=== PATIENT | female | born 1950 | race Caucasian/White ===

== ENCOUNTER 2024-10-16 10:20 | Outpatient (AMB) | payer BC, SELFPAY ==
[2024-10-16 10:32] VITALS: BP 122/62; PULSE 80; O2SAT 98; BMI 28.4
--- NOTE | 2024-10-16 10:32 | A.OFFVIS_ITS ---
Vital Signs 10/16/24 10:32 Height 5 ft 8 in Weight 186 lb 8.177 oz BMI 28.4 BP 122/62 Blood Pressure Location Lt brachial Position Sitting Pulse 80 Pulse Source Pulse Oximeter Pulse Oximetry (%) 98 Oxygen Delivery Method Room Air Intake Visit Reasons: Vasculitis (ATC recs not revd) Intake Note: Patient present for follow up on vasculitis. Allergies No Known Allergies Allergy (Verified 10/16/24 10:35) HPI HPI Vasculitis (ATC recs not revd): Details: He had cataract surgery. He feels well. Denies GCA or PMR symptoms. He occasionally has right knee pain when he sleeping. After positional change it resolves. No new fractures. No new dental procedure plan. [facility] Medical History (Updated 10/16/24 @ 12:29 by Raghu Davies MD) COVID Tremor due to disorder of central nervous system Cataract Double vision TIA (transient ischemic attack) PMR (polymyalgia rheumatica) MRSA infection Giant cell arteritis Vasculitis Surgical History (Updated 10/16/24 @ 10:54 by Krupa Baker CMA) H/O hernia repair Social History (Updated 10/16/24 @ 10:57 by Krupa Baker CMA) Alcohol intake: current Comment: 2 beers a day Patient Tobacco Use Status: Former Tobacco user Tobacco use type: Cigarette Review of Systems Const All systems reviewed & are unremarkable except as noted in HPI and below Physical Exam Vital Signs: Last Vital Signs Pulse 80 10/16/24 10:32 BP 122/62 10/16/24 10:32 Pulse Ox 98 10/16/24 10:32 Oxygen Delivery Method Room Air 10/16/24 10:32 BMI result Body Mass Index 28.4 Const Other: General: Comfortable CVS: RRR Respiratory: clear to auscultation bilaterally. Good respiratory effort Skin: No lesions seen MSK: No tenderness of any joints. No synovitis. Good range of motion of upper extremity and lower extremity. Assessment & Plan Assessment & Plan (1) Giant cell arteritis: Comment: History of GCA with occlusive disease. In clinical remission. He reports recent visit with vascular surgery reported stable ultrasounds. Code(s): M31.6 - Other giant cell arteritis Category: Medical Plan: ESR and CRP have been ordered for monitoring Depressing medical records from [facility] Requesting last clinic note from vascular surgeon Dr. Coffey at [facility]. He will follow up with vascular surgery yearly. Requesting last CT chest 02/2024 Return to clinic in 6 months (2) Osteoporosis: Comment: On alendronate Code(s): M81.0 - Age-related osteoporosis without current pathological fracture Category: Medical Qualifiers: Osteoporosis type: age-related Presence of current pathological fracture: without current pathological fracture Qualified Code(s): M81.0 - Age- related osteoporosis without current pathological fracture Plan: Bone turnover markers, Creatinine, vitamin-D, albumin and calcium ordered Continue alendronate 70 mg once weekly Continue calcium and vitamin-D supplement Requesting medical records from [facility] Recurrent eye clinic in 6 months Orders: Orders C Reactive Protein Today M31.6 - Other giant cell arteritis Creatinine Today M31.6 - Other giant cell arteritis Vitamin D 25-OH Total Today M81.0 - Age-related osteoporosis without current pathological fracture Alkaline Phosphatase Bone Today M81.0 - Age-related osteoporosis without current pathological fracture Erythrocyte Sedimentation Rate Today M31.6 - Other giant cell arteritis Calcium Today M81.0 - Age-related osteoporosis without current pathological fracture Albumin Level Today M31.6 - Other giant cell arteritis, M81.0 - Age-related osteoporosis without current pathological fracture Collagen Type I C-Telopeptide Today M81.0 - Age-related osteoporosis without current pathological fracture Coding Level of Care Code Est Pt Level 4 (61496) Complex EM visit Add On G2211 Diagnoses Giant cell arteritis M31.6 Age-related osteoporosis without current pathological fracture M81.0 Osteoporosis type: age-related Presence of current pathological fracture: without current pathological fracture
== END 2024-10-16 11:35 | disposition home or self-care (01) ==
PROVIDERS: PCP Internal Medicine; Visit Provider Internal Medicine Rheumatology
DX: M31.6 Other giant cell arteritis (principal); M81.0 Age-related osteoporosis without current pathological fracture
CPT/HCPCS: 99214

== ENCOUNTER 2024-10-16 10:20 | Outpatient (REF) | payer BC, SELFPAY ==
[2024-10-16 14:00] LABS: Albumin Level 4.5 g/dL (3.5-5.0); Calcium 9.2 mg/dL (8.4-10.2); Estimated Glomerular Filt Rate > 60
[2024-10-16 14:10] LABS: Erythrocyte Sedimentation Rate 10 MM/HR (0-20)
[2024-10-16 14:19] LABS: Vitamin D 25-OH Total 35.5 ng/mL (>30)
[2024-10-18 13:33] LABS: Collagen Type I C-Telopeptide 93 pg/mL (see note)
[2024-10-19 13:35] LABS: Alkaline Phosphatase Bone 6.7 mcg/L (5.6-29.0)
== END 2024-10-16 10:21 | disposition home or self-care (01) ==
LOC: HO.HMGCLDS 10:20
PROVIDERS: PCP Internal Medicine; Visit Provider Internal Medicine Rheumatology
DX: M81.0 Age-related osteoporosis without current pathological fracture (principal); M31.6 Other giant cell arteritis
CPT/HCPCS: 36415; 82040; 82306; 82310; 82523; 82565; 84075; 85652; 86140

== ENCOUNTER 2025-01-29 13:23 | Outpatient (REF) | payer BC, SELFPAY ==
[2025-01-29 18:05] LABS: Alanine Aminotransferase 22 U/L (0-31); Aspartate Amino Transferase 35 U/L (5-31); C Reactive Protein 0.16 mg/dL (< or = 0.50); Estimated Glomerular Filt Rate > 60
[2025-01-29 18:50] LABS: Erythrocyte Sedimentation Rate 8 MM/HR (0-20)
== END 2025-01-29 13:24 | disposition home or self-care (01) ==
LOC: HO.HKASLDS 13:23
PROVIDERS: PCP Internal Medicine; Visit Provider Internal Medicine Rheumatology
DX: M31.6 Other giant cell arteritis (principal); Z79.899 Other long term (current) drug therapy
CPT/HCPCS: 36415; 82565; 84450; 84460; 85652; 86140

== ENCOUNTER 2025-01-29 13:23 | Outpatient (AMB) | payer BC, SELFPAY ==
--- NOTE | 2025-01-29 13:27 | MHC.OFFVIS ---
Vital Signs 01/29/25 13:29 Height 5 ft 8 in Weight 184 lb 15.485 oz BMI 28.1 BP 110/68 Blood Pressure Location Lt brachial Position Sitting Pulse 88 Pulse Source Pulse Oximeter Pulse Oximetry (%) 98 Oxygen Delivery Method Room Air Comment 128/80 RIGHT ARM Intake Visit Reasons: follow up Intake Note: Patient present for follow up on vasculitis. Accompanied by: self Allergies No Known Allergies Allergy (Verified 01/29/25 13:29) HPI HPI follow up: Details: He is experiencing neck pain. Denies central neck pain. Pain is on his sides. He has difficulty sleeping at night due to pain. He drove back from [place], which may the neck pain worse. He has cyclobenzaprine 5 mg q.h.s. for a few days without benefit. He tried Tylenol 1 tablet q.h.s. without benefit. He does not like to take pills. In the past he had transaminitis related to alcohol use. He reduced his alcohol intake, which resolved transaminitis. No GCA or PMR symptoms. [facility] Medical History (Updated 01/29/25 @ 21:26 by Raghu Davies MD) COVID Tremor due to disorder of central nervous system Cataract Double vision TIA (transient ischemic attack) PMR (polymyalgia rheumatica) MRSA infection Giant cell arteritis Vasculitis Surgical History (Updated 10/16/24 @ 10:54 by Krupa Baker CMA) H/O hernia repair Social History (Updated 10/16/24 @ 10:57 by Krupa Baker CMA) Alcohol intake: current Comment: 2 beers a day Patient Tobacco Use Status: Former Tobacco user Tobacco use type: Cigarette Review of Systems Const All systems reviewed & are unremarkable except as noted in HPI and below Physical Exam Vital Signs: Last Vital Signs Pulse 88 01/29/25 13:29 BP 110/68 01/29/25 13:29 Pulse Ox 98 01/29/25 13:29 Oxygen Delivery Method Room Air 01/29/25 13:29 BMI result Body Mass Index 28.1 Const Other: General: Comfortable CVS: RRR Respiratory: clear to auscultation bilaterally. Good respiratory effort Skin: No lesions seen Pulses: +2 bilateral temporal and right radial pulses , left radial pulse +1 MSK: No tenderness of any joints. No synovitis. Normal range of motion of upper extremity and lower extremity. Tender to palpate lateral to cervical spinous paraspinal muscles. No spinous process tenderness. Right cervical rotation 60 degrees, left 45 degrees with limited extension and flexion of neck. Assessment & Plan Assessment & Plan (1) Giant cell arteritis: Comment: History of GCA with occlusive disease involving brachial artery and carotid arteries. In remission. Rheumatology history: TA biopsy 05/2021 confirmed large vessel vasculitis with occlusive disease on CTA and MRA chest involving left brachial artery, mid axillary arteries and right subclavian artery presenting with concurrent PMR for over a year prior to presentation. He declined prednisone from PCP and self-treated his symptoms with naproxen with benefit. He developed constitutional symptoms preceding diagnosis. Prednisone started 05/20/2019. Actemra August 15, 2019 to October 10, 2021. He follows with vascular surgery Dr. Coffey at [facility] yearly for surveillance duplex ultrasounds of upper extremities and carotid arteries. Code(s): M31.6 - Other giant cell arteritis Category: Medical Plan: Inflammatory markers ordered Monitor clinically Vascular surgery follow-up July 2025 Requesting last neurology clinic note from [facility] Medical records from [facility] and [facility] vascular surgery reviewed Return to clinic in 3 months (2) Myofascial neck pain: Comment: Contributing to his pain. 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 We discussed conservative management. Code(s): M54.2 - Cervicalgia Category: Medical Plan: He will try lidocaine patch applied to neck Try capsaicin topical or diclofenac gel 1 % to affected area as needed Increase cyclobenzaprine to 10 mg q.h.s.. He will monitor for increased somnolence. He will contact neurologists to find out if he is okay with patient trying TENs unit and utilizing his [employer] massager to the area. He will take Tylenol 1-2 tablets twice a day for pain relief Baseline liver enzymes ordered Return to clinic in 3 months (3) Osteopenia with high risk of fracture: Comment: DXA 07/14/2019 lowest T-score-1.6 L2-L4, T-score-1.4 left femoral neck, T-score -1.2 left total hip, FRAX hip fracture risk 3.2% and major osteoporotic fracture is 12%. Alendronate July 11, 2019 to March 10, 2022 drug holiday due to improvement in bone density. DXA 2023 has slightly worsened with T-score increasing from -1.22- 1.3 L-spine and from -1.22- 1.3 left femoral neck,-0.7-1.1 left total hip. Restarted Fosamax 03/2024. Code(s): M85.80 - Other specified disorders of bone density and structure, unspecified site Category: Medical Plan: Continue Fosamax 70 mg once weekly Continue calcium and vitamin-D supplement Creatinine ordered Return to clinic in 3 months Orders: Orders Erythrocyte Sedimentation Rate Today Z79.899 - Other extermination inspector (current) drug therapy C Reactive Protein Today Z79.899 - Other extermination inspector (current) drug therapy Creatinine Today M31.6 - Other giant cell arteritis Alanine Aminotransferase Today M31.6 - Other giant cell arteritis Aspartate Amino Transferase Today M31.6 - Other giant cell arteritis Coding Level of Care Code Est Pt Level 4 (24219) Complex EM visit Add On G2211 Diagnoses Giant cell arteritis M31.6 Myofascial neck pain M54.2 Osteopenia with high risk of fracture M85.80 Time Spent (min) 30
[2025-01-29 13:29] VITALS: BP 110/68; PULSE 88; O2SAT 98; BMI 28.1
== END 2025-01-29 14:28 | disposition home or self-care (01) ==
LOC: HO.RHES 13:23
PROVIDERS: PCP Internal Medicine; Visit Provider Internal Medicine Rheumatology
DX: M31.6 Other giant cell arteritis (principal); M54.2 Cervicalgia; M85.80 Other specified disorders of bone density and structure, unspecified site
CPT/HCPCS: 99214

== ENCOUNTER 2025-05-05 13:23 | Outpatient (REF) | payer BC, SELFPAY ==
[2025-05-05 18:18] LABS: Alanine Aminotransferase 18 U/L (0-31); Aspartate Amino Transferase 30 U/L (5-31)
== END 2025-05-05 13:24 | disposition home or self-care (01) ==
LOC: HO.HKASLDS 13:23
PROVIDERS: PCP Internal Medicine; Visit Provider Internal Medicine Rheumatology
DX: R74.01 Elevation of levels of liver transaminase levels (principal); M31.6 Other giant cell arteritis
CPT/HCPCS: 36415; 84450; 84460; 85652; 86140

== ENCOUNTER 2025-05-05 13:23 | Outpatient (AMB) | payer BC, SELFPAY ==
[2025-05-05 13:25] VITALS: BP 130/70; PULSE 83; O2SAT 96; BMI 26.9
--- NOTE | 2025-05-05 13:25 | A.OFFVIS_ITS ---
Vital Signs 05/05/25 13:25 Height 5 ft 8 in Weight 177 lb BMI 26.9 BP 130/70 Blood Pressure Location Rt brachial Position Sitting Pulse 83 Pulse Source Pulse Oximeter Pulse Oximetry (%) 96 Oxygen Delivery Method Room Air Intake Visit Reasons: 3 Months Intake Note: Patient present for follow up on vasculitis. Allergies No Known Allergies Allergy (Verified 05/05/25 13:25) HPI HPI 3 Months: Details: He stopped fosamax. He has floaters and will be seeing plumbing warehouse helper. He sees light flashes in right eye at night. He reduced alcohol to one beer a day from 2/day. No GCA symptoms. He continues to have neck pain but the pain is not as intense as it used to be. He uses lidocaine topical roll-on. He has not tried lidocaine patch or capsaicin. He is using collagen powder half of the recommended dose. [facility] Medical History COVID Tremor due to disorder of central nervous system Cataract Double vision TIA (transient ischemic attack) PMR (polymyalgia rheumatica) MRSA infection Giant cell arteritis Vasculitis Surgical History H/O hernia repair Social History Alcohol intake: current Comment: 2 beers a day Patient Tobacco Use Status: Former Tobacco user Tobacco use type: Cigarette Physical Exam Vital Signs: Last Vital Signs Pulse 83 05/05/25 13:25 BP 130/70 05/05/25 13:25 Pulse Ox 96 05/05/25 13:25 Oxygen Delivery Method Room Air 05/05/25 13:25 BMI result Body Mass Index 26.9 Const Other: General: Comfortable CVS: RRR Respiratory: clear to auscultation bilaterally. Good respiratory effort Skin: No lesions seen Pulses: +2 bilateral temporal and right radial pulses , left radial pulse +1 MSK: No tenderness of any joints. No synovitis. Normal range of motion of upper extremity and lower extremity. Tender to palpate lateral to cervical spinous paraspinal muscles. No spinous process tenderness. Cervical rotation 60 degrees with full limited extension and flexion of neck. Assessment & Plan Assessment & Plan (1) Giant cell arteritis: Comment: History of GCA with occlusive disease involving brachial artery and carotid arteries. In remission. Inflammatory markers normal January 2025. Rheumatology history: TA biopsy 05/2021 confirmed large vessel vasculitis with occlusive disease on CTA and MRA chest involving left brachial artery, mid axillary arteries and right subclavian artery presenting with concurrent PMR for over a year prior to presentation. He declined prednisone from PCP and self- treated his symptoms with naproxen with benefit. He developed constitutional symptoms preceding diagnosis. Prednisone started 05/20/2019. Actemra August 15, 2019 to October 10, 2021. He follows with vascular surgery Dr. Coffey at [facility] yearly for surveillance duplex ultrasounds of upper extremities and carotid arteries. Code(s): M31.6 - Other giant cell arteritis Category: Medical Plan: Inflammatory markers ordered Monitor clinically Vascular surgery follow-up July 2025 Continue asprin 81mg qd. Discussed benefits of aspirin in patients with giant cell arteritis with reducing risk of cardiovascular events such as stroke. Return to clinic in 3 months (2) Myofascial neck pain: Comment: Improved pain. 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 Pain has improved with using OTC topical lidocaine and patch with menthol. Code(s): M54.2 - Cervicalgia Category: Medical Plan: He has an upcoming appointment with his neurologist. He will inquire if it is okay to have light massage to treat myofascial strain. Return to clinic in 3 months (3) Osteopenia with high risk of fracture: Comment: He discontinued Fosamax recently. We discussed alternative options to oral bisphosphonates due to his GI history of esophagitis and esophageal stricture. Oral bisphosphonates are contraindicated. We discussed next steps with zoledronic acid. I recommend 1 dose of zoledronic acid then repeating bone density in 2025 to evaluate benefit. Patient will further discuss with his and inflatable buildings laminator. Rheumatology history: DXA 07/14/2019 lowest T-score-1.6 L2-L4, T-score-1.4 left femoral neck, T-score -1.2 left total hip, FRAX hip fracture risk 3.2% and major osteoporotic fracture is 12%. Alendronate July 11, 2019 to March 10, 2022 drug holiday due to improvement in bone density. DXA 2023 has slightly worsened with T-score increasing from -1.22- 1.3 L-spine and from -1.22- 1.3 left femoral neck,-0.7-1.1 left total hip. Restarted Fosamax 03/2024-04/[address] Bruno Pulliam's clinic note, which revealed that patient had EGD revealing history of grade C esophagitis and esophageal stricture requiring dilatation. Code(s): M85.80 - Other specified disorders of bone density and structure, unspecified site Category: Medical Plan: Information on Reclast given to patient. He will be following up with GI in May for repeat colonoscopy/EGD Continue calcium and vitamin-D supplement Bone density due 2025 Return to clinic in 3 months (4) Transaminitis: Comment: AST was mildly elevated at 35 (N<31 U/L). He has reduced his alcohol intake from 2 beers a day to weekly. He will be resuming his usual alcohol intake of 2 beers a day as he prefers to enjoy his drinks with his as it improves his quality of life. Code(s): R74.01 - Elevation of levels of liver transaminase levels Category: Medical Plan: Rechecking liver function tests this visit Orders: Orders Erythrocyte Sedimentation Rate Today M31.6 - Other giant cell arteritis C Reactive Protein Today M31.6 - Other giant cell arteritis Medications: Discontinued cyclobenzaprine Discontinued Reason: Doctor's Order 5 mg PO BEDTIME PRN 30 tabs 1RF muscle spasm Coding Level of Care Code Est Pt Level 4 (56017) Complex EM visit Add On G2211 Diagnoses Giant cell arteritis M31.6 Myofascial neck pain M54.2 Osteopenia with high risk of fracture M85.80 Transaminitis R74.01
--- OUTSIDE RECORDS SUMMARY | 2025-05-05 14:45 | XMS_ITS | Clinical Summary ---
Author Organization [facility] Address [address] [place] [address] Phone Care Team Providers Care Rag Sorter And Cutter Name Role Phone Loyda Lopez MD Primary Care Prov ider Allergies Active Allergy Reactions Criticality Noted Date Comments Penicillins 02/19/2025 Medications senna-docusate (PERICOLACE) 8.6-50 mg per tablet Take 1 tablet by mouth 1 (one) time each day. Active ferrous sulfate 325 mg (65 mg elemental iron) tablet Take 1 tablet (325 mg total) by mouth 1 (one) time each day with breakfast. Active calcium amino acid chelate 200 mg calcium tablet Take by mouth. Active coenzyme Q-10 30 mg capsule Take 1 capsule (30 mg total) by mouth 1 (one) time each day. Active KRILL OIL ORAL Take by mouth. Active aspirin 81 mg EC tablet Take 1 tablet (81 mg total) by mouth 1 (one) time each day. Active cholecalciferol (VITAMIN D-3) 25 mcg (1,000 unit) tablet Take 1 tablet (1,000 Units total) by mouth 1 (one) time each day. Active clopidogreL (PLAVIX) 75 mg tablet Take 1 tablet (75 mg total) by mouth 1 (one) time each day. Active pantoprazole (PROTONIX) 20 mg EC tablet Take 1 tablet (20 mg total) by mouth 1 (one) time each day before breakfast. Do not crush, chew, or split. Active atorvastatin (LIPITOR) 80 mg tablet Take 1 tablet (80 mg total) by mouth at bedtime. Active magnesium citrate solution Take by mouth 1 (one) time. Active alendronate (FOSAMAX) 70 mg tablet Take 1 tablet (70 mg total) by mouth every 7 (seven) days. Take in the morning with a full glass of water, on an empty stomach, and do not take anything else by mouth or lie down for the next 30 min. Active cyanocobalamin (VITAMIN B-12) 500 mcg tablet Take 1 tablet (500 mcg total) by mouth 1 (one) time each day. Active Active Problems Problem Noted Date Diagnosed Date Iron deficiency anemia 03/25/2025 History of esophageal stricture 03/25/2025 Gastroesophageal reflux dise ase with esophagitis without hemorrhage 03/25/2025 Age-related osteoporosis wit hout current pathological fracture 03/25/2025 Encounters Date Type Department Care Team Description 03/25/2025 9:00 AM EDT Consult Gastroenterology [facility] [address] [id number] Bayron Pulliam MD Iron deficiency anemia due to chronic blood loss (Primary Dx); History of esophageal stricture; Gastroesophageal reflux disease with esophagitis without hemorrhage; Age-related osteoporosis without current pathological fracture 02/19/2025 Telephone Gastroenterology [facility] [address] [phone] Larry King MD special procedure from Last 3 Months Social History Tobacco Use Types Packs/Day Years Used Date Smoking Tobacco: Former Cigarettes Smokeless Tobacco: Never Alcohol Use Standard Drinks/Week Comments Yes 1 (1 standard drink = 0.6 oz pur e alcohol) Sex and Gender Information Value Date Recorded Sex Assigned at Not on file Legal Sex Male 12:41 PM EST Gender Identity Not on file Sexual Orientation Not on file Obstetrics History Last Filed Vital Signs Vital Sign Reading Time Taken Comments Blood Pressure 128/76 03/25/2025 8:59 AM EDT Pulse 88 03/25/2025 8:59 AM EDT Temperature - - Respiratory Rate - - Oxygen Saturation 98% 03/25/2025 8:59 AM EDT Inhaled Oxygen Concentration - - Weight 79.6 kg (175 lb 6.4 oz) 03/25/2025 8:59 A M EDT Height 172.7 cm (5' 8 ) 03/25/2025 8:59 AM EDT Body Mass Index 26.67 03/25/2025 8:59 AM EDT Plan of Treatment Upcoming Encounters Date Type Department Care Team (Late st Contact Info) Description 06/18/2025 11:00 AM EDT Appointment [facility] [address] [place] [id number] Bayron Pulliam MD 175 [facility] [address] [place] [address] Health Maintenance Due Date Last Done Comments RSV Immunization Adult Patients (1 - 1-dose 75+ series) 01/14/2024 COVID-19 Vaccine ( - season) 2024 08/04/2021, 01/16/2021, 12/26/2020 Cholesterol Screening (Lipid Panel) 02/19/2025 Depression Screening 02/19/2025 Falls Risk Assessment 02/19/2025 Hepatitis C Screening 02/19/2025 Social Influencers of Health Screening 02/19/2025 Influenza Vaccine (#1) 2025 3, 07/22/2023, 07/20/2021, Additional history exists DTaP,Tdap,and Td Vaccines (4 - Td or Tdap) 08/02/2031 08/02/2021, 09/12/2013, 09/12/2013 Pneumococcal Vaccine: 50+ Years Completed 11/14/2017, 09/01/2014, 08/10/2014 Zoster Vaccines Completed 10/31/2018, 06/2018, 10/22/2015, Additional history exists HIB Vaccines Aged Out No longer eligi ble based on patient's age to complete this topic HPV Vaccines Aged Out No longer eligi ble based on patient's age to complete this topic Hepatitis A Vaccines Aged Out No long er eligible based on patient's age to complete this topic Hepatitis B Vaccines Aged Out No long er eligible based on patient's age to complete this topic IPV Vaccines Aged Out No longer eligi ble based on patient's age to complete this topic MMR Vaccines Aged Out No longer eligi ble based on patient's age to complete this topic Meningococcal ACWY Vaccine Aged Out N o longer eligible based on patient's age to complete this topic Meningococcal B Vaccine Aged Out No l onger eligible based on patient's age to complete this topic RSV Immunization Patients Under 20 months Aged Out No longer eligible based on patient's age to complete this topic Varicella Vaccines Aged Out No longer eligible based on patient's age to complete this topic Insurance [facility] Care Teams Rag Sorter And Cutter Relationship Specialty Start Date End Date Loyda Lopez MD [address] [place] [address] PCP - General Internal Medicine 02/19/25
== END 2025-05-05 14:29 | disposition home or self-care (01) ==
PROVIDERS: PCP Internal Medicine; Visit Provider Internal Medicine Rheumatology
DX: M31.6 Other giant cell arteritis (principal); M54.2 Cervicalgia; M85.80 Other specified disorders of bone density and structure, unspecified site; R74.01 Elevation of levels of liver transaminase levels
CPT/HCPCS: 99214

== ENCOUNTER 2025-09-16 13:04 | Outpatient (AMB) | payer BC, SELFPAY ==
[2025-09-16 13:34] VITALS: BP 122/70; PULSE 65; O2SAT 97; BMI 26.9
--- NOTE | 2025-09-16 13:34 | MHC.OFFVIS ---
Vital Signs 09/16/25 13:34 Height 5 ft 8 in Weight 176 lb 12.972 oz BMI 26.9 BP 122/70 Blood Pressure Location Lt brachial Position Standing Pulse 65 Pulse Source Pulse Oximeter Pulse Oximetry (%) 97 Oxygen Delivery Method Room Air Intake Visit Reasons: follow up Intake Note: Patient presents for vasculitis follow up. Accompanied by: Self / Same As Patient Allergies No Known Allergies Allergy (Verified 09/16/25 13:38) HPI HPI follow up: Details: He had MRA of his head and neck and reports that the prior blockage has improved (vertebral artery) but it is still persistent. He has been experiencing right knee pain. Left knee pain does not bother him as much as his right knee. Denies headaches, vision changes, jaw claudication, scalp pain, shoulder/hip girdle pain. [facility] Medical History COVID Tremor due to disorder of central nervous system Cataract Double vision TIA (transient ischemic attack) PMR (polymyalgia rheumatica) MRSA infection Giant cell arteritis Vasculitis Surgical History H/O hernia repair Social History Alcohol intake: current Comment: 2 beers a day Patient Tobacco Use Status: Former Tobacco user Tobacco use type: Cigarette Physical Exam Vital Signs: Last Vital Signs Pulse 65 09/16/25 13:34 BP 122/70 09/16/25 13:34 Pulse Ox 97 09/16/25 13:34 Oxygen Delivery Method Room Air 09/16/25 13:34 BMI result Body Mass Index 26.9 Const Other: General: Comfortable CVS: RRR Respiratory: clear to auscultation bilaterally. Good respiratory effort Skin: No lesions seen Pulses: +2 bilateral temporal and right radial pulses , left radial pulse +1 MSK: No tenderness of any joints. No synovitis. Normal range of motion of upper extremity and lower extremity. No knee effusion. Assessment & Plan Assessment & Plan (1) Giant cell arteritis: Comment: History of GCA with occlusive disease involving brachial artery and carotid arteries. In remission. Inflammatory markers normal April 2025. ESR August 2025 normal. Rheumatology history: TA biopsy 05/2021 confirmed large vessel vasculitis with occlusive disease on CTA and MRA chest involving left brachial artery, mid axillary arteries and right subclavian artery presenting with concurrent PMR for over a year prior to presentation. He declined prednisone from PCP and self-treated his symptoms with naproxen with benefit. He developed constitutional symptoms preceding diagnosis. Prednisone started 05/20/2019. Actemra August 15, 2019 to October 10, 2021. He follows with vascular surgery Dr. Coffey at [facility] yearly for surveillance duplex ultrasounds of upper extremities and carotid arteries. Code(s): M31.6 - Other giant cell arteritis Category: Medical Plan: CRP ordered Monitor clinically Requesting Vascular surgery follow-up July 2025 Continue asprin 81mg qd Return to clinic in 6 months (2) Osteopenia with high risk of fracture: Comment: He has GI history of esophagitis and esophageal stricture. Oral bisphosphonates are contraindicated. We discussed next steps with zoledronic acid. I recommend 1 dose of zoledronic acid then repeating bone density in 2025 to evaluate benefit. Patient and his had concerns about adverse effects with zoledronic acid. We discuss the rare side effect of atypical fractures and osteonecrosis of the jaw, which can occur in cases. The benefits of preventing fragility fracture on zoledronic acid and preserving quality of life/independent outweighs the rare risks involved. He has good dental health. Patient in his will think about it. Rheumatology history: DXA 07/14/2019 lowest T-score-1.6 L2-L4, T-score-1.4 left femoral neck, T-score -1.2 left total hip, FRAX hip fracture risk 3.2% and major osteoporotic fracture is 12%. Alendronate July 11, 2019 to March 10, 2022 drug holiday due to improvement in bone density. DXA 2023 has slightly worsened with T-score increasing from -1.22- 1.3 L-spine and from -1.22- 1.3 left femoral neck,-0.7-1.1 left total hip. Restarted Fosamax 03/2024-04/[address] Bruno Pulliam's clinic note, which revealed that patient had EGD revealing history of grade C esophagitis and esophageal stricture requiring dilatation. Code(s): M85.80 - Other specified disorders of bone density and structure, unspecified site Category: Medical Plan: Continue calcium and vitamin-D supplement Bone density due 2025 Return to clinic in 6 months (3) Transaminitis: Comment: Resolved on April labs. Code(s): R74.01 - Elevation of levels of liver transaminase levels Category: Medical Plan: No further testing is indicated (4) Knee pain, bilateral: Comment: Right knee pain greater than left knee Code(s): M25.561 - Pain in right knee; M25.562 - Pain in left knee Category: Medical Plan: Bilateral knee x-rays ordered We discussed importance of having a regular exercise routine. He is planning to go to [place] soon until January. If he continues to have knee pain at his follow up appointment, I will add PT brace knee Orders: Orders C Reactive Protein 09/16/25 M31.6 - Other giant cell arteritis Coding Level of Care Code Est Pt Level 4 (05637) Complex visit Add On G2211 Diagnoses Giant cell arteritis M31.6 Osteopenia with high risk of fracture M85.80 Transaminitis R74.01 Knee pain, bilateral M25.561; M25.562
== END 2025-09-16 14:14 | disposition home or self-care (01) ==
LOC: HO.RHES 13:04
PROVIDERS: PCP Internal Medicine; Visit Provider Internal Medicine Rheumatology
DX: M31.6 Other giant cell arteritis (principal); M85.80 Other specified disorders of bone density and structure, unspecified site; R74.01 Elevation of levels of liver transaminase levels; M25.561 Pain in right knee; M25.562 Pain in left knee
CPT/HCPCS: 99214

== ENCOUNTER 2025-09-16 13:04 | Outpatient (REF) | payer BC, SELFPAY ==
--- NOTE | ~2025-09-16 | XR_ITS ---
Exam: X-ray, bilateral knees.XR KNEE 1-2 VIEWS BILATERAL TECHNIQUE: AP and lateral views lower extremity joint, bilateral knees INDICATION: chronic knee pain COMPARISON: None available. FINDINGS: RIGHT KNEE: There is mild narrowing of the medial joint space. There are small marginal sites, most pronounced along the medial joint line. Intercondylar tubercles are peaked. Small volume of joint fluid is seen. Also, along the proximal posterior diaphysis of the left tibia, there is oblique sclerotic lesion in the frontal x-ray with exostosis on the lateral view involving posterior proximal tibial diaphysis consistent with a tug lesions along the soleal line. Vascular calcification is visible in the popliteal artery and lateral lower leg. LEFT KNEE: There is subtle narrowing of the medial joint space. There are marginal osteophytes involving patella and medial joint line. Intercondylar tubercles are peaked. There is no joint effusion. There is a bony exostosis along the posterior proximal diaphysis of the fibula. Along the proximal posterior diaphysis of the left tibia, there is oblique sclerotic lesion in the frontal x-ray with exostosis on the lateral view involving posterior proximal tibial diaphysis consistent with a tug lesions along the soleal line. XR/XR Knee Maury 1or 2V IMPRESSION: Right knee: Mild osteoarthritis. Tug lesion along the soleal line. Chronic changes from a remote injury. Left knee: Mild osteoarthritis. Tug lesion along the soleal line. Chronic changes from a remote injury. Additionally, there is a bony exostosis involving the posterior fibula at the junction of proximal third and the middle third diaphysis. It has distinct margins with a bubbly appearance and does not appear associated with cortical destruction. Lesion appear periosteal and could be related to remote ossified subperiosteal hematoma or other periosteal injury. Etiology is uncertain. In the absence of known malignancy, follow-up x-ray in 3-6 months. If there is a known history of malignancy with propensity to metastasize to bone, consider MRI without and with IV contrast. Electronically signed by: Joradn Brown MD 09/16/2025 03:35 PM EST
== END 2025-09-16 13:05 | disposition home or self-care (01) ==
LOC: HO.HKASLDS 13:04
PROVIDERS: PCP Internal Medicine; Visit Provider Internal Medicine Rheumatology
DX: M31.6 Other giant cell arteritis (principal); M85.88 Other specified disorders of bone density and structure, other site; M25.561 Pain in right knee; M25.562 Pain in left knee; R74.01 Elevation of levels of liver transaminase levels
CPT/HCPCS: 36415; 73560; 86140

== ENCOUNTER → 2025-09-16 15:00 | Outpatient (BNV) | payer BC, SELFPAY | PROVIDERS: PCP Internal Medicine; Visit Provider Radiology Diagnostic Radiology | DX: M17.0 Bilateral primary osteoarthritis of knee (principal) | CPT/HCPCS: 73560 ==